=== PATIENT | female | born 1960 | race Caucasian/White ===

== ENCOUNTER 2019-08-01 09:14 | Outpatient (CLI) | payer OTHER, SELFPAY ==
--- NOTE | 2019-08-01 09:18 | ECG_ITS ---
Measurements Intervals [place] Rate: 71 P: 64 [place]: 131 QRS: 55 QRSD: 89 T: 42 QT: 365 QTc: 398 Interpretive Statements SINUS RHYTHM BORDERLINE R WAVE PROGRESSION, ANTERIOR LEADS BORDERLINE ECG Electronically Signed On 08-01-2019 10:18:37 CDT by Brandon Richard D.O.
[2019-08-01 09:27] LABS: Basophils Absolute Auto 0.04 K/mm3 (0.00-0.10); Basophils Percent Auto 0.9 % (0.0-1.0); Eosinophils Absolute Auto 0.07 K/mm3 (0.02-0.50); Eosinophils Percent Auto 1.5 % (1.0-6.0); Hematocrit 38.5 % (35.0-49.0); Hemoglobin 12.6 g/dL (12.0-15.0); Immature Granulocyte Absolute 0.01 K/mm3 (0.00-0.00); Immature Granulocyte Percent A 0.2 % (0.0-0.0); Lymphocytes Absolute Auto 1.32 K/mm3 (1.10-4.50); Lymphocytes Percent Auto 28.8 % (18.0-42.0); Mean Corpuscular HGB Conc 32.7 g/dL (32.0-36.0); Mean Corpuscular Hemoglobin 30.1 pg (27.0-31.0); Mean Corpuscular Volume 92.1 fL (78.0-102.0); Mean Platelet Volume 10.3 fl (9.2-11.8); Monocytes Absolute Auto 0.37 K/mm3 (0.10-0.90); Monocytes Percent Auto 8.1 % (2.0-11.0); Neutrophils Absolute Auto 2.8 K/mm3 (1.7-7.2); Neutrophils Percent Auto 60.5 % (50.0-70.0); Platelet Count Result 220 K/mm3 (150-420); Red Blood Count 4.18 M/mm3 (4.20-5.40); Red Cell Distribution Width 11.7 % (11.6-14.4); White Blood Count 4.6 K/mm3 (4.8-10.8)
[2019-08-01 10:17] LABS: Alanine Aminotransferase 18 U/L (14-59); Albumin Level 4.2 g/dL (3.4-5.0); Alkaline Phosphatase 50 U/L (46-116); Anion Gap 12.4 mmol/L (7-16); Aspartate Amino Transferase 17 U/L (15-37); Bilirubin,Total 0.3 mg/dL (0.00-1.00); Blood Urea Nitrogen 16 mg/dL (7-18); Carbon Dioxide 31 mmol/L (21-32); Chloride 106 mmol/L (98-108); Cholesterol 224 mg/dL (0-200); Estimated Glomerular Filt Rate > 60; Glucose 93 mg/dL (70-99); HDL Direct 55 mg/dL (40-60); LDL Cholesterol Calculated 152 mg/dL (<130); Osmolality Calculated 301 mOsm/kg (285-295); Potassium 4.4 mmol/L (3.5-5.1); Sodium 145 mmol/L (136-145); Total Protein 7.2 g/dL (6.4-8.2); Triglycerides 85 mg/dL (0-150)
[2019-08-01 11:28] LABS: Thyroid Stimulating Hormone Reflex 1.25 u/IU/mL (0.36-3.74)
== END 2019-08-01 09:15 | disposition home or self-care (01) ==
PROVIDERS: PCP Family Medicine; Visit Provider Family Medicine
DX: Z00.00 Encounter for general adult medical examination without abnormal findings (principal); R63.5 Abnormal weight gain; R00.2 Palpitations
CPT/HCPCS: 36415; 80053; 80061; 84443; 85025; 93005

== ENCOUNTER 2022-07-02 09:41 | Emergency (ER) | payer BC, SELFPAY ==
--- NOTE | ~2022-07-02 | CT_ITS ---
EXAMINATION: CT abdomen pelvis w con DATE: 07/02/2022 11:31 INDICATION: Right lower quadrant abdominal pain for one day. Nausea and vomiting. TECHNIQUE: Computed tomography (CT) of the abdomen and pelvis was performed with 100 CC Omnipaque 350 intravenous contrast. Automated exposure control and iterative reconstruction technique were employe d. Exam dose: 326.80 mGy-cm total exam DLP. COMPARISON: None. FINDINGS: The lung bases are clear. Normal heart size. No pericardial or pleural effusion. Small sliding hiatal hernia. The liver, spleen, pancreas, adrenal glands appear normal. No hepatic curtis rface nodularity. Normal liver density. No gallbladder wall thickening or pericholecystic fluid or fat stranding. No bile duct or pancreatic duct dilatation. 7.5 mm right renal cyst and 3.6 mm right renal cyst. 4.3 cm left renal cyst. No urinary tract calculus or hydroureteronephrosis. The urinary bladder, uterus and adnexal areas are unremarkable. There is appendiceal dilatation, the appendix measuring up to approximately 1.2 cm diameter, with thi ckening of the appendiceal wall and periappendiceal fat stranding. No abscess or free air is identifi ed. There are numerous diverticula of the left and right colon; no CT evidence of diverticulitis. No bowel obstruction or intraperitoneal free air. Small fat-containing umbilical hernia. Included skeletal structures are unremarkable. IMPRESSION: Acute uncomplicated appendicitis Diverticulosis of left and right colon Bilateral renal cysts Reviewed, dictated and finalized at [facility]. Reviewed, dictated and finalized at [facility].
[2022-07-02 09:45] VITALS: BP 172/77; PULSE 131; RESP 20; TEMP 36.6; O2SAT 96
--- NOTE | 2022-07-02 09:58 | ECG_ITS ---
Measurements Intervals [place] Rate: 81 P: 62 [place]: 141 QRS: 5 QRSD: 87 T: 17 QT: 358 QTc: 418 Interpretive Statements SINUS RHYTHM DELAYED PRECORDIAL R/S TRANSITION BORDERLINE ECG COMPARED TO ECG 08/01/2019 09:37:34 NO SIGNIFICANT CHANGES Electronically Signed On 07-02-2022 11:13:01 CDT by Brandon Richard D.O.
[2022-07-02] MEDS: SODIUM CHLORIDE 0.9% IV 1,000 ML 999 ML IV CONT (10:07)
[2022-07-02] MEDS: ONDANSETRON INJ 4 MG/2 ML VIAL IV PUSH (10:08)
[2022-07-02] MEDS: MORPHINE SULFATE (*CRX) 2 MG/ML INJ (10:10)
[2022-07-02 10:20] LABS: Appearance Urine Clear (Clear); Bilirubin Urine Negative (Negative); Blood Urine 2+ (Negative); Color Urine Yellow (Yellow); Glucose Urine UA Negative (Negative); Ketones Urine 1+ (Negative); Leukocyte Esterase Ur 1+ LEU/UL (Negative); Nitrate Urine Negative (Negative); Protein Urine 1+ (Negative); Specific Grav Ur >= 1.030 (1.010-1.020); Urobilinogen Urine 0.2 mg/dL (0.2-1.0)
[2022-07-02 10:22] LABS: Basophils Absolute Auto 0.05 K/mm3 (0.00-0.10); Basophils Percent Auto 0.3 % (0.0-1.0); Eosinophils Absolute Auto 0.01 K/mm3 (0.02-0.50); Eosinophils Percent Auto 0.1 % (1.0-6.0); Hematocrit 42.8 % (35.0-49.0); Immature Granulocyte Absolute 0.06 K/mm3 (0.00-0.00); Immature Granulocyte Percent A 0.4 % (0.0-0.0); Immature Platelet Fraction Pct 5.3 % (1.0-7.0); Lymphocytes Absolute Auto 0.66 K/mm3 (1.10-4.50); Lymphocytes Percent Auto 4.4 % (18.0-42.0); Mean Corpuscular HGB Conc 32.7 g/dL (32.0-36.0); Mean Corpuscular Volume 94.9 fL (78.0-102.0); Mean Platelet Volume 10.9 fl (9.2-11.8); Monocytes Absolute Auto 0.64 K/mm3 (0.10-0.90); Monocytes Percent Auto 4.2 % (2.0-11.0); Neutrophils Absolute Auto 13.7 K/mm3 (1.7-7.2); Neutrophils Percent Auto 90.6 % (50.0-70.0); Platelet Count Result 153 K/mm3 (150-420); Red Blood Count 4.51 M/mm3 (4.20-5.40); Red Cell Distribution Width 11.6 % (11.6-14.4); White Blood Count 15.1 K/mm3 (4.8-10.8)
[2022-07-02 10:25] LABS: Add Urine Microscopic? YES
--- NOTE | 2022-07-02 10:25 | ED.ABDPAIN ---
HPI - Abdominal Pain General Chief Complaint: Abdominal Pain Stated Complaint: right lower quadrant pain Time Seen by Provider: 07/02/22 09:44 Source: patient Mode of arrival: ambulatory Limitations: no limitations History of Present Illness HPI narrative: this is a 61-year-old female with no significant past medical history that presents with some abdominal pain localizing to her right lower quadrant started earlier this morning has been having nausea with no diarrhea no constipation no dysuria no hematuria no radiation of her pain, no flank pain no chest pain no shortness of breath. Patient rates her pain currently at about a 4/10 she says if she lies still that her pain is mildly better. MD elicited complaint: abdominal pain Onset (ago): hour(s) Pain Consistency: constant Location: RLQ Severity: moderate Pain scale (0-10): 4 Quality: aching and sharp Radiation: none Migration to: no migration Exacerbating factors: movement Relieving factors: vomiting Associated symptoms: nausea Related Data Home Medications Medication Instructions Recorded Confirmed No Home Medications 07/02/22 07/02/22 Allergies Allergy/AdvReac Type Severity Reaction Status Date / Time Sulfonamides Allergy Intermediate Unknown Uncoded 06/19/19 12:55 Review of Systems Review of Systems: All systems reviewed & are unremarkable except as noted in HPI and below PMFSH Past Medical History Medical History No active medical problems Palpitations Surgical History Surgical History H/O section History of hysterectomy Partial. 2006. Family History Family History Father CAD (coronary artery disease) Hyperlipidemia Mother Lung cancer Pancreatic cancer Social History Social History Smoking status: Never smoker Additional living arrangements comments: . 2 Children. Exam Const: General: no acute distress Nutritional Appearance: well nourished Limitations: no limitations HENMT: Head: normal to inspection Eyes: Conjunctivae: conjunctivae normal Direct Ophthalmoscopy: no photophobia Neck: Neck: normal visual inspection and no lymphadenopathy Chest: Chest palpation & inspection: normal inspection of the chest Resp: Effort & Inspection: normal respiratory effort Auscultation: clear to auscultation bilaterally Cardio: Rate: regular rate Rhythm: regular rhythm GI: GI Palp: Yes Soft to palpation, Yes Tenderness to palpation present (GI) and Yes Guarding due to palpation present (GI) Auscultation: normal bowel sounds Other: Pain localizing to right lower quadrant : General: Yes bladder normal to palpation Skin: General skin exam: normal color Rashes: no rashes Wounds: no wounds Neuro: General: patient oriented x3 and moves all extremities Extrem: General: normal to inspection Psych: Mental Status: mental status grossly normal Affect: normal affect Course Course Emergency Course: patient started on IV with IV fluids given a dose of morphine 2mg IV along with Zofran 4mg IV, patient's symptoms have improved, [place] [id number], patient's CT scan reviewed and shows acute uncomplicated appendicitis, the patient received a dose of IV Zosyn and surgeon was called [facility] [place] that accepted the patient for transfer. MDM - Abdominal Pain Lab Data 07/02/22 10:15 07/02/22 10:15 Labs: Lab Results 07/02/22 07/02/22 07/02/22 Range/Units 10:15 10:15 10:15 WBC 15.1 H (4.8-10.8) K/mm3 RBC 4.51 (4.20-5.40) M/mm3 Hgb 14.0 (12.0-15.0) g/dL Hct 42.8 (35.0-49.0) % MCV 94.9 (78.0-102.0) fL MCH 31.0 (27.0-31.0) pg MCHC 32.7 (32.0-36.0) g/dL RDW 11.6 (11.6-14.4) %
[2022-07-02 10:26] LABS: Bacteria Urine 3+ /hpf; Squamous Epithelial Cell Urine Few /hpf (Few)
[2022-07-02 10:35] LABS: INR 0.9; Partial Thromboplastin Time 20.4 SEC (23.90-30.70); Prothrombin Time 10.3 Seconds (9.50-12.10)
[2022-07-02 10:38] LABS: Alanine Aminotransferase 21 U/L (14-59); Albumin Level 4.3 g/dL (3.4-5.0); Alkaline Phosphatase 61 U/L (46-116); Anion Gap 12 mmol/L (8-16); Aspartate Amino Transferase 20 U/L (15-37); Bilirubin,Total 0.9 mg/dL (0.00-1.00); Blood Urea Nitrogen 17 mg/dL (7-18); Carbon Dioxide 26 mmol/L (21-32); Chloride 102 mmol/L (98-108); Estimated Glomerular Filt Rate > 60; Glucose 115 mg/dL (70-99); Lactic Acid Reflex 0.7 mmol/L (0.4-2.0); Lipase 18 U/L (16-77); Osmolality Calculated 292 mOsm/kg (285-295); Potassium 3.7 mmol/L (3.5-5.1); Sodium 140 mmol/L (136-145); Total Protein 8.4 g/dL (6.4-8.2); Troponin I 8.8 ng/L (0.00-60.4)
--- NOTE | 2022-07-02 11:08 | PC.NURSE ---
PT TO XRAY FOR CT PER STRETCHER. PT STABLE.
[2022-07-02 11:51] VITALS: BP 136/70; PULSE 106; O2SAT 100
[2022-07-02 12:53] VITALS: BP 137/70; PULSE 100; RESP 18; TEMP 36.4; O2SAT 97
== END 2022-07-02 13:03 | disposition short-term general hospital (02) ==
PROVIDERS: Emergency Provider Emergency Medicine; PCP Family Medicine
DX: K35.80 Unspecified acute appendicitis (principal)
CPT/HCPCS: 36415; 74177; 80053; 81001; 83605; 83690; 84484; 85025; 85055; 85610; 85730; 87086; 87088; 93005; 96361; 96365; 96375; 99285; J2270; J2405; J2543; J7030; Q9967